=== PATIENT | female | born 1975 | race Caucasian/White ===

== ENCOUNTER 2018-06-22 08:55 | Inpatient (IN) | payer OTHER ==
[2018-06-22 09:22] LABS: #Monocytes 0.6 thou/uL (0.11-0.59); #Neutrophils 12.6 thou/uL (1.40-6.50); %Basophils 0.1 % (0.0-1.0); %Eosinophils 0.1 % (0.0-10.0); %Lymphocytes 6.8 % (21.0-51.0); Mean Corpuscular HGB CONC 32.4 g/dL (32.0-36.0); Mean Corpuscular Volume 89.4 fL (78.0-98.0); Mean Platelet Volume 7.8 fL (7.4-10.4); Platelet Count 231 thou/uL (130-400); RBC Distribution Width 12.1 % (11.5-14.5); Red Blood Cell (RBC) Count 4.84 mill/uL (4.20-5.40); White Blood Cell (WBC) Count 14.2 thou/uL (4.8-10.8)
[2018-06-22 09:28] LABS: Bilirubin Negative (Negative); Blood, Urine Negative (Negative); Clarity CLEAR (Clear); Glucose, Urine (Dipstick) Negative (Negative); Leukocyte Negative (Negative); Nitrite Negative (Negative); Protein, Urine (Dipstick) Trace mg/dL (Neg-Trace); Specific Gravity, Urine 1.023 (1.002-1.036); Urobilinogen 0.2 mg/dL (0.2-1.0); pH, Urine 7.5 (5.0-9.0)
[2018-06-22] MEDS ORDERED: Morphine 2 MG/ML SYRINGE ONE (09:31)
[2018-06-22] MEDS ORDERED: Ondansetron PF 4 MG/2 ML Vial ONE (09:31)
[2018-06-22 09:37] LABS: ALT (SGPT) 16 U/L (8-55); AST (SGOT) 18 U/L (5-34); Albumin 4.6 g/dL (3.5-5.0); Alkaline Phosphatase 57 U/L (40-150); Anion Gap 9 mmol/L (10-20); BUN (Urea Nitrogen) 14 mg/dL (7.0-18.7); Bilirubin, Total 0.6 mg/dL (0.2-1.2); Calc. Creatinine Clearance 0 mL/min (70-130); Calcium 9.3 mg/dL (7.8-10.44); Carbon Dioxide 27 mmol/L (22-29); Chloride 105 mmol/L (98-107); Estimated GFR-MDRD 63; Globulin 3.1 g/dL (2.4-3.5); Glucose 112 mg/dL (70-105); Lipase 31 U/L (8-78); Potassium 3.8 mmol/L (3.5-5.1); Protein, Total 7.7 g/dL (6.0-8.3); Sodium 137 mmol/L (136-145)
[2018-06-22] MEDS ORDERED: Ketorolac Tromethamine 30 MG/ML VIAL ONE ×2 (10:38→13:23)
--- NOTE | 2018-06-22 11:11 | RAD ---
ABDOMEN SURVEY WITH UPRIGHT CHEST AND TWO VIEWS ABDOMEN: Indications: Nausea, vomiting, right lower quadrant pain. Comparison: 05-03-18 FINDINGS: Mild gaseous distention of the colon seen without dilatation. Nonspecific small bowel gas in the mida bdomen. No evidence of free air or soft tissue mass. No abnormal calcification. IMPRESSION: Nonspecific bowel gas pattern. POS: [facility]
--- NOTE | 2018-06-22 11:59 | PDOC.FPRHP ---
- History of Present Illness Chief Complaint: abdominal pain History of Present Illness: This is a previously healthy 43yo F presenting with a 1 day hx of abdominal pain. Onset yesterday afternoon, position RLQ, crampy and sharp in quality. Pt presented to [facility] ER and per pt had CT and labs done and was discharged with Dx of constipation with a laxative. Pt did not tolerate laxative and became Nauseous with watery vomiting 4 times/hour from 2-8am when she presented to the ED. No hematemesis. Pain was 10/10 but decreased to 6/10 with morphine in ED. Vomiting was resolved with Zofran in ED. Last BM was yesterday morning x2, both large and of medium consistency and brown color. No changes in diet recently. Pt has hx of appendectomy and has not had any changes in diet. Pt has also had hysterectomy. Pt felt similar pain in April for 4-6 hours that resolved spontaneously. No other Hx of GI problems. ED Course: Morphine, IVF, Toradol, Zofran - Allergies/Adverse Reactions Allergies Allergy/AdvReac Type Severity Reaction Status Date / Time hydrocodone Allergy Verified 06/22/18 13:05 - History PMHx: thyroid goiter (resolved surgically in 1999) PSHx: Appendectomy 2008, hysterectomy 2011, partial thyroidectomy FHx: lymphoma Social: social (twice/month), denies tobacco/drugs - Review of Systems General: denies: fever/chills, fatigue Eyes: denies: eye pain, vision changes ENT: denies: nasal congestion, rhinorrhea Respiratory: denies: cough, congestion, shortness of breath Cardiovascular: denies: chest pain, palpitation Gastrointestinal: reports: nausea, vomiting, abdominal pain. denies: diarrhea, constipation, GI bleeding Genitourinary: denies: dysuria, discharge Skin: denies: rashes, lesions Musculoskeletal: denies: pain, tenderness Neurological: denies: syncope, seizure - Vital signs BP: [110/79] HR: [74] RR: [18] Tmax: [98.4] Pox: [100]% on [ra] Wt: [62kg] - Physical Exam Constitutional: awake, alert and oriented, other (moderate distress due to pain) HEENT: normocephalic and atraumatic, EOMI, conjunctiva clear, grossly normal vision, grossly normal hearing, MMM Neck: supple, no JVD Chest: no-tender to palpation Heart: RRR, normal S1/S2 Lungs: CTAB, no respiratory distress, no wheezing -Abdomen: diminished bowel sounds, soft, no guarding. Diffuse mild TTP with moderate TTP in RLQ, resonance to percussion in R quadrants, negative prater sign. Musculoskeletal: normal structure, normal tone Neurological: no focal deficit, normal sensation Skin: no rash/lesions, good turgor, capillary refill <2 seconds Heme/Lymphatic: no purpura, no petechia Psychiatric: normal mood and affect, good judgment and insight FMR H&P: Results - Labs Result Diagrams: 06/22/18 09:05 06/22/18 09:05 Lab results: WBC 14.2 thou/uL (4.8-10.8) H 06/22/18 09:05 Hgb 14.0 g/dL (12.0-16.0) 06/22/18 09:05 Hct 43.3 % (36.0-47.0) 06/22/18 09:05 MCV 89.4 fL (78.0-98.0) 06/22/18 09:05 Plt Count 231 thou/uL (130-400) 06/22/18 09:05 Neutrophils % 89.0 % (42.0-75.0) H 06/22/18 09:05 Sodium 137 mmol/L (136-145) 06/22/18 09:05 Potassium 3.8 mmol/L (3.5-5.1) 06/22/18 09:05 Chloride 105 mmol/L (98-107) 06/22/18 09:05 Carbon Dioxide 27 mmol/L (22-29) 06/22/18 09:05 BUN 14 mg/dL (7.0-18.7) 06/22/18 09:05 Creatinine 0.96 mg/dL (0.6-1.1) 06/22/18 09:05 Glucose 112 mg/dL (70-105) H 06/22/18 09:05 Calcium 9.3 mg/dL (7.8-10.44) 06/22/18 09:05 Total Bilirubin 0.6 mg/dL (0.2-1.2) 06/22/18 09:05 AST 18 U/L (5-34) 06/22/18 09:05 ALT 16 U/L (8-55) 06/22/18 09:05 Alkaline Phosphatase 57 U/L (40-150) 06/22/18 09:05 Serum Total Protein 7.7 g/dL (6.0-8.3) 06/22/18 09:05 Albumin 4.6 g/dL (3.5-5.0) 06/22/18 09:05 Lipase 31 U/L (8-78) 06/22/18 09:05 Urine Ketones Trace mg/dL (Negative) H 06/22/18 09:00 Urine Blood Negative (Negative) 06/22/18 09:00 Urine Nitrite Negative (Negative) 06/22/18 09:00 Ur Leukocyte Esterase Negative (Negative) 06/22/18 09:00 FMR H&P: A/P - Problem List (1) Small bowel obstruction Current Visit: Yes Status: Acute Code(s): K56.609 - UNSP INTESTNL OBST, UNSP TO PARTIAL VERSUS COMPLETE OBST - Plan 43yo previously healthy female presenting with abdominal pain SBO A- Pt has Abdominal XR shows non specific bowel gas patterns and has otherwise classic symptoms of SBO. Pt has negative prater sign on exam and has already had appendectomy. No hx of diverticulitis. No peritoneal signs, no fever. No changes in bowel habits other than no BM this morning. Considering severity of pain prior to presentation and that pt has no flatus with excessive watery vomiting pt can benefit from decompression. Last PO intake yesterday evening. Pt appears to be hydrated and is s/p 1L NS P- NPO bowel rest - NG tube - Toradol scheduled, Tylenol prn for pain - procal for asesment of likelyhood for surgical intervention - LR 100ml/hr Dispo: observation Code: Full DVT Ppx: lovenox FMR H&P: Upper Level - Pertinent history Patient is a 43yo F with no PMH who presented to [facility] ED 2 days prior with crampy abdominal pain. Reports diagnosed with constipation and released with some unknown medication to promote defecation. She reports she started vomiting after trying to drink the laxative. Over the last two days has continued to have abdominal pain but it worsened today to the point where she came to the ED. She reports BM x2 yesterday around 1000 and no BM or passing gas since then. Right now, she is in a lot of pain that is described as crampy and is all over her belly but worse on RLQ. She has 2 prior abdominal surgeries , hysterectomy and appendectomy. She has never had bowel trouble or bowel workup before. She reports continued nausea that has calmed after IV zofran in the ED. In the ED she received toradol 30mg IV, morphine 4mg, 1L NS, and zofran ROS: 10 pt ROS performed and negative other than those mentioned above. - Pertinent findings PE: General: in moderate distress from pain, crying and cannot get comfortable, hugging a pillow. CV: RRR no murmurs Lungs: CTAB Abd: soft, tenderness throughout abdomen, worse in RLQ, rebound present, no guarding, negative heel jar, hypoactive BS Labs: WBC 14, otherwise wnl Imaging: CT abd sent over from [facility] but not veiwable at this time KUB- air fluid levels on upright view, concern for SBO - Plan Date/Time: 06/22/18 1782 I, Estela Jasso, have evaluated this patient and agree with findings/plan as outlined by financial services intern resident. Pertinent changes/additions are listed here. SBO, likely - Concern for acute abdomen, will consult surgery. - CTabd/pelv for evaluation - Place NG tube for stomach decompression, bowel rest, NPO status - toradol, tylenol, and morphine for pain VTE Ppx: SCD's, ambulation IVF: NS at 100mls/hr Code status: Full Dispo: likely admitted for 2 days for surgical vs medical management Attending Addendum - Attending Addendum Date/Time: 06/22/18 5307 I personally evaluated the patient and discussed the management with Dr. Quiroga /Louisa. I agree with the History, Examination, Assessment and Plan documented above with any addition or exceptions noted below. Patient here with 2 days of RLQ abdominal pain, worsening. Not alleviated by any factors. Had normal BM yesterday prior to pain onset but has had no BM or flatus since onset of pain. Was seen at outside ER yesterday and given PEG for constipation but that did not alleviate pain and only made her nauseous. Reports history of appendectomy and hysterectomy. On exam, she is uncomfortable appearing. RRR, CTAB. Has NGT in place currently. Abdomen is distended, tender diffuse with guarding. Bowel sounds hypoactive and low pitched. No c/c/e. Labs pertinent for trace ketones in urine and mild elevation in WBC with left shift. KUB read as "nonspecific bowel gas pattern" but there are multiple air fluid levels seen on my interpretation. Patient will be admitted for suspected SBO. Consult Surgery due to worsening pain and concern for possible future development of acute abdomen. Will need serial abdominal exams. Pain control as needed. NGT to suction, NPO status, and IVF hydration. Will repeat CT scan at this time to see if transition point or cause of obstruction noted.
[2018-06-22 13:13] VITALS: BMI 25.7
[2018-06-22] MEDS ORDERED: Ondansetron PF 4 MG/2 ML Vial IVP PRN (13:20)
[2018-06-22] MEDS: Lactated Ringer's 1,000 ML IV SCH ×2 (13:45→21:57)
[2018-06-22] MEDS ORDERED: Morphine 4 MG/ML VIAL ONE (14:35)
[2018-06-22] MEDS: Morphine 4 MG/ML VIAL SLOW IVP SCH ×2 (15:14→15:20)
[2018-06-22] MEDS ORDERED: Morphine 4 MG/ML VIAL SLOW IVP PRN (15:18)
[2018-06-22] MEDS: Ketorolac Tromethamine 30 MG/ML VIAL IVP SCH (17:35)
--- NOTE | 2018-06-22 19:14 | CT ---
CT OF THE ABDOMEN AND PELVIS WITH CONTRAST: 06/22/18 HISTORY: Abdominal pain. Small bowel obstruction. TECHNIQUE: Multiple contiguous axial images were obtained in a CT of the abdomen and pelvis with contrast. PO co ntrast was administered. Coronal reformats were performed. The liver, gallbladder, kidneys, adrenal glands, spleen, and pancreas are unremarkable. No free air o r stranding changes are seen in the abdomen or pelvis. There is a small amount of free fluid in the pelvis. There is an enhancing structure in the right asp ect of the pelvis which may represent the patient's right ovary and enhancement of a recently ovulate d follicle in the right ovary. The uterus is not definitely seen and may have been removed. The small bowel is normal in caliber without significant distention. Fluid is seen in the colon without signif icant colonic distention. There appears to be an anastomotic staple line in the cecum which may be fr om prior appendicectomy. The previously seen stool has been evacuated. No abdominal or pelvic lymphad enopathy are seen. The osseous structures, visualized inferior thorax and abdominal wall soft tissues are unremarkable. IMPRESSION: There is free fluid in the pelvis which may be physiologic and from ovulation of the right ovary. Co rrelate with right lower quadrant abdominal pain and tenderness. POS: [facility]
[2018-06-22] MEDS ORDERED: traMADol HCl 50 MG TAB PO PRN ×2 (21:36)
[2018-06-22] MEDS: Acetaminophen 500 MG TAB PO SCH (21:57)
--- NOTE | 2018-06-22 23:05 | CON ---
DATE OF CONSULTATION: 06/22/2018 REQUESTING PHYSICIAN: Dr. Jonh Quiroga. HISTORY OF PRESENT ILLNESS: This is a 43-year-old woman G2, P2 with previous history of laparoscopic -assisted vaginal hysterectomy and open appendectomy. [facility] complaining of acute severe recurrent abdominal pain. Patient was evaluated, gi rene a gallon of Bebe and had multiple episodes of nonbilious emesis afterwards. She presented to our emergency department today complaining of worsening abdominal pain, which she now rates at 9-10/ 10. Pain is mostly right lower quadrant, although has become generalized at the time of my evaluatio n. Patient is unable to stand erect. She walks, stooped over and when in bed, she is in a pos ition the only position of comfort. Last bowel movement was yesterday and was normal. At this bowel movement occurred about 10:00 a.m. and the pain started at about 11:00 a.m. Maximum intensity of th e pain was first noted at approximately 1800 hours yesterday. She has not been pain free at any poin t in time since yesterday. The pain comes in waves, described as crampy, and occasionally sharp. Sebastien zamora denies any fevers or chills. Although, she denies any past history of such pain, medical recor ds that indicate she was seen at [facility] in 04/2018 complaining of similar pain pattern, which person ally lasted 3 days prior to presentation in the emergency department. She also had a similar experie nce in 2016. The pain at the time was reportedly lasting 6 days before patient was seen in emergency department. Currently, she is awake and alert. She has received morphine 4 mg and Toradol 30 mg wi th minimum relief. PAST MEDICAL HISTORY: Essentially unremarkable except for as stated above. SURGICAL HISTORY: Significant for laparoscopic-assisted vaginal hysterectomy was in 2011 and open ap pendectomy was in 2008, and she also had partial thyroidectomy in 1999. SOCIAL HISTORY: She lives independently. She admits occasional intake of ethanol in moderate amount . She denies any cigarette smoking, or illicit drug abuse. FAMILY HISTORY: Notable for maternal grandfather with lymphoma or leukemia. Various members of exte nded relations had essential hypertension. There is no family history of heart disease or any other cancers. She clearly denies any family history of inflammatory bowel disease. OUTPATIENT MEDICATION: Includes multiple vitamins of various kinds. ALLERGIES: Patient denies any known drug allergies. REVIEW OF SYSTEMS: A 10-point review of systems is essentially unremarkable except for as stated in past medical history and chief complaint. PHYSICAL EXAMINATION: GENERAL: This reveals 43-year-old normally developed woman who is otherwise coherent and interactive and appears stated age. Patient is alert and oriented x3. She appears to be in moderate acute dist ress secondary to abdominal pain. VITAL SIGNS: Includes blood pressure 132/82, pulse is 81, respiratory rate is 21, temperature is 98 degrees Fahrenheit, oxygen saturation 97% on room air. HEENT: Reveals normocephalic and atraumatic. Pupils equal, round, reactive to light and accommodati on. HEART: Reveals regular rate and rhythm. No murmurs, gallops auscultated. LUNGS: Clear to auscultation bilaterally. Breathing regular and unlabored. ABDOMEN: Soft, nondistended. She has exquisite tenderness to palpation in the right lower quadrant with a positive Rovsing sign. She does have rebound tenderness present. Bowel sounds in all four qu adrants appear normoactive nevertheless. Liver and spleen nonpalpable below costal margin. She has multiple laparoscopic incision scars that are healed. She has a low abdominal incision from previous appendectomy. All incisional scars remain intact. I did not palpate any fascial defects to suggest any hernias. NEUROLOGIC: Reveals no focal deficits present. LABORATORY FINDINGS: Today includes a CBC with 14,200 white blood cells, hemoglobin and hematocrit 1 4.0 and 43.3 respectively. Platelet count is 231,000. Metabolic profile: Sodium 137, potassium is 3.8, chloride is 105, bicarbonate is 27, BUN 14, creatinine 0.96, glucose 112. Lactic acid is 1.0, t otal bilirubin 0.6, AST and ALT normal at 18 and 16 respectively. C-reactive protein is less than 0. 50. Serum lipase is also normal at 31. At the time of my dictation, CT scan of the abdomen and pelvis was ordered and is yet to be performed . Abdominal x-ray, which was obtained in the emergency department earlier today reveals a nonspecifi c gas pattern with no obstructive process. IMPRESSION: Acute recurrent abdominal pain. Etiology of this pain is uncertain at this time, althou gh I suspect pain is secondary to adhesions. Cannot exclude closed loop small-bowel obstruction at t his time. PLAN: I agree with CT scan of the abdomen and pelvis with p.o. and IV contrast. I would re-evaluate the patient after I have had the chance to review the CT scan of the abdomen and pelvis. If the pat ient continues to have such severe abdominal pain, especially if it is supported by radiographic stud ies, we will give consideration for diagnostic laparoscopy and possible exploratory laparotomy at ja t time. Above findings and plan have been discussed with the patient and adult parents at bedside. They indira robbie understanding of information given. Thank you again, Dr. Quiroga, for allowing me the opportunity to participate in the care of this pat ient.
[2018-06-23] MEDS: Ketorolac Tromethamine 30 MG/ML VIAL IVP SCH ×2 (00:42→05:33)
--- NOTE | 2018-06-23 00:54 | PRG ---
DATE OF SERVICE: 06/22/2018. It has been several hours since my last visit with Ms. Child. In the interim, CT scan of the abdomen and pelvis which was obtained reveals no evidence of bowel obs truction or bowel perforation. Some free fluid; however, is noted in the pelvis, especially in the r ight lower quadrant. The area adjacent to the right ovary is enhanced. The uterus is surgically abs ent. No other intraperitoneal pathology is evident. Clinically, the patient reports marked improvem ent in abdominal pain. The pain is now rated at 4/10. She has had bowel movement and is passing fla tus since her last evaluation. She has remained hemodynamically stable. OBJECTIVE: VITAL SIGNS: Current vital signs includes blood pressure 126/76, pulse is 74, respiratory rate is 18 , temperature 98 degrees Fahrenheit, oxygen saturation 96% on room air. ABDOMEN: Soft, nondistended and moderately tender to palpation with no gross rebound tenderness pres ent. IMPRESSION: Resolving acute abdominal pain, likely secondary to a ruptured ovarian cyst. PLAN: There is no acute surgical indication for this patient at this time. Operative intervention w ould be withheld. We will initiate diet and continued with analgesics including nonsteroidal anti-in flammatory agents. Above findings and plan have been discussed with the patient who indicates understanding of the infor mation given. This visit is conducted in the presence of the patient's nurse at bedside. We will co ntinue with serial physical examination.
[2018-06-23] MEDS: Acetaminophen 500 MG TAB PO SCH ×2 (05:33→09:03)
[2018-06-23 06:11] LABS: #Basophils 0.1 thou/uL (0.0-0.2); #Eosinphils 0.1 thou/uL (0.0-0.7); #Lymphocytes 1.9 thou/uL (1.20-3.40); #Monocytes 0.5 thou/uL (0.11-0.59); #Neutrophils 4.8 thou/uL (1.40-6.50); %Eosinophils 1.9 % (0.0-10.0); %Monocytes 6.6 % (0.0-10.0); %Neutrophils 65.4 % (42.0-75.0); Hemoglobin 11.5 g/dL (12.0-16.0); Mean Corpuscular HGB CONC 30.4 g/dL (32.0-36.0); Mean Corpuscular Hemoglobin 28.1 pg (27.0-31.0); Mean Corpuscular Volume 92.7 fL (78.0-98.0); Mean Platelet Volume 8.4 fL (7.4-10.4); Platelet Count 164 thou/uL (130-400); RBC Distribution Width 12.5 % (11.5-14.5); Red Blood Cell (RBC) Count 4.08 mill/uL (4.20-5.40); White Blood Cell (WBC) Count 7.4 thou/uL (4.8-10.8)
--- NOTE | 2018-06-23 07:09 | PDOC.FM ---
- Subjective Subjective: pt reports marked improvement of her pain. She also reports BM last night of watery soft consistency. No nausea/vomiting. no complaints at this time. no fever/chills, no cp no palpitations, no nausea no vomiting - Objective MAR Reviewed: Yes Vital Signs & Weight: Vital Signs (12 hours) Temp Pulse Resp BP Pulse Ox 06/22/18 20:49 98 F 74 18 126/76 96 06/22/18 20:00 96 06/22/18 19:32 98.8 F 72 16 118/81 95 Weight Weight 65.828 kg I&O: 06/22/18 06/23/18 06/24/18 06:59 06:59 06:59 Intake Total 900 Output Total 150 Balance 750 Result Diagrams: 06/23/18 05:40 06/22/18 09:05 <Jonh Quiroga - Last Filed: 06/23/18 07:44> - Objective Vital Signs & Weight: Vital Signs (12 hours) Temp Pulse Resp BP Pulse Ox 06/23/18 09:07 64 06/23/18 07:38 98 F 54 L 16 104/66 97 Weight Weight 65.828 kg I&O: 06/22/18 06/23/18 06/24/18 06:59 06:59 06:59 Intake Total 900 Output Total 150 Balance 750 Result Diagrams: 06/23/18 05:40 06/22/18 09:05 <Letitia Nix - Last Filed: 06/23/18 11:36> Phys Exam - Physical Examination Constitutional: NAD HEENT: moist MMs, sclera anicteric Neck: no JVD, full ROM Respiratory: no wheezing, clear to auscultation bilateral Cardiovascular: RRR, no significant murmur Gastrointestinal: soft, no distention, positive bowel sounds mild TTP in RLQ and RUQ Musculoskeletal: no edema, pulses present Neurological: normal sensation, moves all 4 limbs Psychiatric: normal affect, A&O x 3 Skin: no rash, normal turgor <Jonh Quiroga - Last Filed: 06/23/18 07:44> Dx/Plan (1) Small bowel obstruction Code(s): K56.609 - UNSP INTESTNL OBST, UNSP TO PARTIAL VERSUS COMPLETE OBST Status: Acute - Plan Plan: 43yo previously healthy female presenting with abdominal pain SBO vs. uncomplicated ruptured ovarian cyst A- Pt is s/p NG tube and improved greatly with positive BM. Abd CT shows no significant distension and fluid in pelvis. all VSS and wnl. Surg consulted, appreciate recs. P- f/u surgery recs, possible DC today - Advancing diet as tolerated Dispo: observation Code: Full DVT Ppx: lovenox <Jonh Quiroga - Last Filed: 06/23/18 07:44> Attending Addendum - Attending Addendum Date/Time: 06/23/18 9601 I personally evaluated the patient and discussed the management with Dr. Quiroga. I agree with the History, Examination, Assessment and Plan documented above with any addition or exceptions noted below. The patient is feeling much better. Abdominal pain is resolved. She has had a bowel movement. With clinical course, this seems to have been the result of a ruptured ovarian cyst. If she tolerates food and h/h is stable she can go home this afternoon. <Letitia Nix - Last Filed: 06/23/18 11:36>
[2018-06-23] MEDS ORDERED: Pantoprazole 40 MG VIAL IVP SCH (09:00)
[2018-06-23] MEDS ORDERED: Enoxaparin Sodium 40 MG/0.4 ML SYRINGE SC SCH (09:00)
[2018-06-23] MEDS: Lactated Ringer's 1,000 ML IV SCH (09:00)
[2018-06-23 15:56] VITALS: BP 125/62; TEMP 98.5
--- NOTE | 2018-06-23 17:10 | PRG ---
DATE OF SERVICE: 06/23/2018 SUBJECTIVE: Ms. Child is a 43-year-old woman who I was asked to see to exclude small-bowel obstructio n. Today, she denies any abdominal pain this morning. She has been tolerating general diet. She is having normal bowel and urinary function. PHYSICAL EXAMINATION: VITAL SIGNS: Today includes blood pressure 125/62, pulse 63, respiratory rate is 17, temperature 98. 5 degrees Fahrenheit, oxygen saturation 99% on room air. ABDOMEN: Soft, nontender, nondistended. Bowel sounds in all 4 quadrants. Normoactive. LABORATORY FINDINGS: Includes a CBC with 7400 white blood cells, hemoglobin and hematocrit 11.5 and 37.8 respectively. Platelet count 164,000. IMPRESSION AND PLAN: Resolved acute small-bowel obstruction versus gastroenteritis. There remains no acute surgical indication for this patient at this time. Patient is certainly ready for discharge from General Surgery's perspective. To that end, General Surgery will sign off and be available to reevaluate the patient on demand. The above recommendations discussed with the patient indicated understanding of the information given. She requires no further followup from the surgery standpoint.
--- NOTE | 2018-06-24 03:58 | DIS-2 ---
DATE OF ADMISSION: 06/22/2018 DATE OF DISCHARGE: 06/23/2018 RESIDENT: Jonh Quiroga MD ADMITTING ATTENDING: Mu Hancock MD DISCHARGE ATTENDING: Letitia Nix MD CONSULTATION: Surgery, Antony Smart DO PROCEDURES: 1. On 06/22/2018, abdominal x-ray: Impression: Nonspecific bowel gas pattern. 2. On 06/22/2018, abdomen and pelvis CT: Impression: There is free fluid in the pelvis, which may be physiologic and from ovulation of the right ovary, correlates with right lower quadrant abdominal pain and tenderness. PRIMARY DIAGNOSIS: Uncomplicated ruptured ovarian cyst. SECONDARY DIAGNOSIS: None. DISCHARGE MEDICATIONS: Multivitamin 1 p.o. daily. DISCONTINUED MEDICATIONS: None. HISTORY OF PRESENT ILLNESS AND HOSPITAL COURSE: This is a 43-year-old previously healthy female who presented to the ED for evaluation of abdominal pain. The patient reports that pain started yesterday or the day before admission and had presented to outside ER, which she reported they had lab work done as well as an abdominal CT and gave her diagnosis of constipation with a laxative . Laxative was not tolerated overnight and the patient had increased nausea and vomiting. patient had nonspecific bowel gas pattern on abdominal x- ray and was showing signs and symptoms of small-bowel obstruction and so was admitted for that with a nasogastric tube decompression, pain management and IV fluids. Surgery was consulted as well as an abdominal CT performed. Abdominal CT showed nondistended bowels or colon, but free fluid in the pelvis which was physiologic for a right ovarian cyst rupture. Patient had resolution of abdominal pain, nausea, vomiting, and had good p.o. toleration and intake. By the next morning with resolution of symptoms, it was deemed the patient had diagnosis of ruptured ovarian cyst and the patient was deemed stable for discharge. DISPOSITION: Stable. DISCHARGE INSTRUCTIONS: 1. Location: Home. 2. Diet: Regular. 3. Activity: As tolerated. 4. Followup: Follow up with primary care provider in 10 days and with Antony Smart. [facility]
== END 2018-06-23 16:10 | disposition home or self-care (01) | DRG 760 ==
LOC: ERS 08:55 → 2SW 11:51 → OBSVTOIN 15:37 → T4-A 20:23
PROVIDERS: ADMIT Family Medicine; ATTEND Family Medicine
DX: N83.299 Other ovarian cyst, unspecified side (principal); K56.609 Unspecified intestinal obstruction, unspecified as to partial versus complete obstruction
CPT/HCPCS: 36415; 36416; 74019; 74177; 80053; 81003; 83605; 83690; 85025; 86140; 94760; 96361; 96374; 96375; C9113; J1650; J1885; J2270; J2405

== ENCOUNTER 2020-01-20 09:00 | Outpatient (CLI) | payer OTHER ==
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
== END 2020-01-20 09:01 | disposition home or self-care (01) ==
LOC: BICRAD 09:00
PROVIDERS: ATTEND Chiropractor
DX: S22.32XA Fracture of one rib, left side, initial encounter for closed fracture (principal)

== ENCOUNTER 2022-10-10 07:39 | Outpatient (CLI) | payer BC ==
[2022-10-10] MEDS ORDERED: Iopamidol 370 76% 100 ML VIAL ONE (13:40)
[2022-10-10] MEDS ORDERED: Magnevist 469MG/ML 20 ML VIAL ONE (14:09)
== END 2022-10-10 07:40 | disposition home or self-care (01) ==
LOC: CT 07:39
PROVIDERS: ATTEND Psychiatry & Neurology Neurology
DX: R56.9 Unspecified convulsions (principal); R93.7 Abnormal findings on diagnostic imaging of other parts of musculoskeletal system; E04.2 Nontoxic multinodular goiter; M26.643 Arthritis of bilateral temporomandibular joint
CPT/HCPCS: 70496; 70498; 70553; 95816; 95957; A9579; Q9967